=== PATIENT | male | born 1975 | race Caucasian/White ===

== ENCOUNTER 2016-11-11 10:50 | Inpatient (IN) | payer OTHER ==
[2016-11-11 11:12] VITALS: BMI 22.8
--- NOTE | 2016-11-11 12:44 | HP ---
COWS - Scale Resting Pulse: 0= [place] 80 or Below Sweatin= Chills/Flushing Restless Observation: 3= Extraneous Movement Pupil Size: 1= Pupils >than Normal Bone or Joint Aches: 4=Acute Joint/Muscle Pain Runny Nose/ Eye Tearin= Nasal Congestion GI Upset > 30mins: 3= Vomiting/Diarrhea Tremor Observation: 2= Slight Tremor Visible Yawning Observation: 1= 1-2x During Session Anxiety or Irritability: 2=Irritable/Anxious Goose Flesh Skin: 0=Smooth Skin COWS Score: 18 Admission ROS S - HPI Chief Complaint: DETOX TX FOR HEROIN DEPENDENCE Allergies/Adverse Reactions: Allergies Allergy/AdvReac Type Severity Reaction Status Date / Time No Known Allergies Allergy Verified 11/11/16 12:02 History of Present Illness: 41 Y/O H/M WITH A HX OF HEROIN AND COCAINE DEPENDENCE SEEKING DETOX TX. FIRST TIME HERE. Exam Limitations: No Limitations - Ebola screening Have you traveled outside of the country in the last 21 days: No Have you had contact with anyone from an Ebola affected area: No Have you been sick,other than usual withdrawal symptoms: No Do you have a fever: No - Review of Systems Constitutional: Chills, Night Sweats, Changes in sleep, Unintentional Wgt. Loss EENT: reports: Tearing, Nose Congestion, Dental Problems (MISSING TEETH) Respiratory: reports: No Symptoms reported Cardiac: reports: Lightheadedness GI: reports: Constipated, Diarrhea, Nausea, Poor Fluid Intake, Vomiting : reports: No Symptoms Reported Musculoskeletal: reports: Back Pain, Joint Pain, Muscle Pain Integumentary: reports: Bruising (IVD TRACKS) Neuro: reports: Headache, Dizziness Endocrine: reports: No Symptoms Reported Hematology: reports: No Symptoms Reported Psychiatric: reports: Orientated x3, Anxious Other Systems: Reviewed and Negative Patient History - Patient Medical History Hx Anemia: No Hx Asthma: No Hx Chronic Obstructive Pulmonary Disease (COPD): No Hx Cardiac Disorders: No Hx Hypertension: No Hx Hypercholesterolemia: No HX Cerebrovascular Accident: No Hx Seizures: No Hx Diabetes: No Hx Gastrointestinal Disorders: No Hx Genitourinary Disorders: No Hx Sexually Transmitted Disorders: No Hx Renal Disease (ESRD): No Hx Thyroid Disease: No Hx Human Immunodeficiency Virus (HIV): No (NEGATIVE HX) Hx Hepatitis C: Yes (TX LONG TIME AGO.) Hx Depression: Yes (NO CURRENT MED) Hx Suicide Attempt: No (DENIES) Hx Bipolar Disorder: No Hx Schizophrenia: No - Patient Surgical History Past Surgical History: Yes Hx Neurologic Surgery: No Hx Cataract Extraction: No Hx Cardiac Surgery: No Hx Lung Surgery: No Hx Breast Surgery: No Hx Breast Biopsy: No Hx Abdominal Surgery: No Hx Appendectomy: No Hx Cholecystectomy: No Hx Genitourinary Surgery: No Hx Orthopedic Surgery: No Other Surgical History: R inguinal hernia repair 7 months ago. Anesthesia Reaction: No - PPD History Previous Implant?: Yes Documented Results: Negative w/proof Implanted On Prior [facility] Admission?: No PPD to be Administered?: Yes - Reproductive History Patient is a Female of Child Bearing Age (11 -55 yrs old): No (MALE) - Smoking Cessation Smoking history: Current every day smoker Have you smoked in the past 12 months: Yes Aproximately how many cigarettes per day: 10 Hx Chewing Tobacco Use: No Initiated information on smoking cessation: Yes 'Breaking Loose' booklet given: 11/11/16 - Substance & Tx. History Hx Alcohol Use: No (DENIES) Hx Substance Use: Yes (HEROIN/COCAINE) Substance Use Type: Cocaine, Heroin Hx Substance Use Treatment: Yes ([facility] [place]) - Substances Abused Heroin Route: Injection Frequency: Daily Amount used: 20-40 bags Age of first use: 13 Date of Last Use: 11/10/16 Cocaine Route: Injection Frequency: Daily Amount used: $20 Age of first use: 20 Date of Last Use: 11/10/16 Family Disease History - Family Disease History Family Disease History: Heart Disease: Grandparent (GM-ALIVE;[id number]. ), Respiratory: Mother (ASTHMA;ANXIETY/BIPOLAR DISORDER) Admission Physical Exam S - Vital Signs Vital Signs: Vital Signs - 24 hr 11/11/16 11:10 Temperature 97.7 F Pulse Rate 74 Respiratory 18 Rate Blood Pressure 127/74 - Physical General Appearance: Yes: Moderate Distress, Irritable, Anxious HEENTM: Yes: EOMI, Normocephalic, RODRIGO, Pharynx Normal Respiratory: Yes: Chest Non-Tender, Lungs Clear, Normal Breath Sounds, No Respiratory Distress Neck: Yes: Supple, Trachea in good position Breast: Yes: Breast Exam Deferred Cardiology: Yes: Regular Rhythm, Regular Rate, S1, S2 Abdominal: Yes: Normal Bowel Sounds, Non Tender, Flat, Soft Genitourinary: Yes: Other (N/C) Back: Yes: Within Normal Limits Musculoskeletal: Yes: full range of Motion, Gait Steady Extremities: Yes: Normal Range of Motion, Non-Tender Neurological: Yes: black belt II-XII NML intact, Fully Oriented, Alert Integumentary: Yes: Dry, Warm, Track Dietz (BOTH FOREARMS-NO REDNESS OR SWELLING.) Lymphatic: Yes: Within Normal Limits - Diagnostic (1) Opioid dependence with withdrawal Current Visit: Yes Status: Acute (2) Cocaine dependence, uncomplicated Current Visit: Yes Status: Acute (3) History of depression Current Visit: Yes Status: Chronic (4) History of hepatitis C Current Visit: Yes Status: Chronic Cleared for Admission [facility] - Detox or Rehab [facility] Level of Care: Medically Managed Detox Regimen/Protocol: Methadone [facility] Breath Alcohol Content Breath Alcohol Content: 0 Urine Drug Screen - Results Drug Screen Negative: No Urine Drug Screen Results: PAVEL-Cocaine, OPI-Opiates, MTD-Methadone, OXY- Oxycodone
[2016-11-11] MEDS ORDERED: NICOTINE POLACRILEX 2 MG GUM BUC PRN (12:55)
[2016-11-11] MEDS ORDERED: LOPERAMIDE HCL 2 MG CAPSULE PO PRN (12:55)
[2016-11-11] MEDS ORDERED: ACETAMINOPHEN 325 MG TABLET (FP) PO PRN (12:55)
[2016-11-11] MEDS ORDERED: MENTHOL/PHENOL 1 EACH UD MM PRN (12:55)
[2016-11-11] MEDS ORDERED: guaiFENesin/D-METHORPHAN HB 10 ML UNIT-DOSE CUPS PO PRN (12:55)
[2016-11-11] MEDS ORDERED: IBUPROFEN 400 MG TABLET (FP) PO PRN (12:55)
[2016-11-11] MEDS ORDERED: MAGNESIUM HYDROX 2400MG/30ML ORAL SUSPENSION 30 ML CUP PO PRN (12:55)
[2016-11-11] MEDS ORDERED: MAG HYDROX/AL HYDROX/SIMETH 30 ML UNIT-DOSE CUP PO PRN (12:55)
[2016-11-11] MEDS ORDERED: P-EPHED 60MG/TRIPROLIDI 2.5MG TABLET PO PRN (12:55)
[2016-11-11] MEDS ORDERED: MAGNESIUM CITRATE 300 ML BOTTLE PO PRN (12:55)
[2016-11-11] MEDS ORDERED: METHADONE HCL 10 MG TABLET (FOR DETOX USE ONLY) PO ONE ×2 (13:25→23:00)
[2016-11-11] MEDS: diazePAM 5 MG TABLET PO PRN ×3 (13:43→22:27)
[2016-11-11] MEDS: NICOTINE 14 MG/24 HOURS TOPICAL PATCH TD SCH (13:43)
[2016-11-11 15:24] LABS: HIV 1 & 2 AB NEGATIVE; HIV 1 AGp24 NEGATIVE
[2016-11-11 16:29] LABS: URINE APPEARANCE CLEAR; URINE BILIRUBIN NEGATIVE (NEGATIVE); URINE BLOOD NEGATIVE (NEGATIVE); URINE COLOR YELLOW; URINE GLUCOSE (UA) NEGATIVE (NEGATIVE); URINE KETONE NEGATIVE (NEGATIVE); URINE LEUK ESTERASE NEGATIVE (NEGATIVE); URINE NITRITE NEGATIVE (NEGATIVE); URINE PROTEIN NEGATIVE (NEGATIVE); URINE UROBILINOGEN NEGATIVE E.U./dl (0.2-1.0)
--- NOTE | 2016-11-11 17:37 | EKG ---
Test Reason : Blood Pressure : / mmHG Vent. Rate : 068 BPM Atrial Rate : 068 BPM P-R Int : 184 ms QRS Dur : 104 ms QT Int : 406 ms P-R-T Axes : 069 014 040 degrees QTc Int : 431 ms NORMAL SINUS RHYTHM POSSIBLE LEFT ATRIAL ENLARGEMENT BORDERLINE ECG NO PREVIOUS ECGS AVAILABLE Confirmed by SHALONDA PETERSON, RODY ([id number]) on 11/11/2016 5:37:02 PM Referred By: Bo Todd Confirmed By:RODY LIZ MD
[2016-11-11] MEDS: THIAMINE HCL 100 MG TABLET (FP) PO SCH (22:26)
[2016-11-12] MEDS: diazePAM 5 MG TABLET PO PRN ×2 (06:01→10:20)
[2016-11-12 09:23] LABS: MCH 23.4 pg (25.7-33.7); MCHC 31.8 g/dl (32.0-35.9); MEAN CELL VOLUME 73.8 fl (80-96); MEAN PLT VOLUME 9.4 fl (7.5-11.1); PLATELET COUNT 180 K/MM3 (134-434); RDW 16.7 % (11.9-15.9); WHITE BLOOD COUNT 6.8 K/mm3 (4.0-10.0)
[2016-11-12 09:30] LABS: ALBUMIN 3.7 g/dl (3.4-5.0); ALK PHOS 55 U/L (45-117); ANION GAP 10 (8-16); BILIRUBIN,TOTAL 0.4 mg/dL (0.2-1.0); CALCIUM 8.8 mg/dL (8.5-10.1); CO2 30 mmol/L (21-32); CREATININE 1.1 mg/dL (0.7-1.3); GLUCOSE,RANDOM 127 mg/dL (74-106); SGOT/AST 58 U/L (15-37); SGPT/ALT 78 U/L (12-78); TOT PROT 7.2 g/dl (6.4-8.2)
--- NOTE | 2016-11-12 09:35 | CONSULT ---
[facility] Psychiatric Consult - Data Date of interview: 11/12/16 Admission source: [facility] Identifying data: First admission to [facility] for this 41 y/o male seeking detox treatment on for heroin and cocaine dependence.Patient is single without children,domiciled,unemployed and supported on food stamps. Substance Abuse History: - Smoking Cessation. Smoking history: Current every day smoker. Have you smoked in the past 12 months: Yes. Aproximately how many cigarettes per day: 10. Hx Chewing Tobacco Use: No. Initiated information on smoking cessation: Yes. 'Breaking Loose' booklet given: 11/11/16. - Substance & Tx. History. Hx Alcohol Use: No (DENIES). Hx Substance Use: Yes (HEROIN/ COCAINE). Substance Use Type: Cocaine, Heroin. Hx Substance Use Treatment: Yes ([facility]). - Substances Abused. Heroin. Route: Injection. Frequency: Daily. Amount used: 20-40 bags. Age of first use: 13. Date of Last Use: 11/10/16. Cocaine. Route: Injection. Frequency: Daily. Amount used: $20. Age of first use: 20. Date of Last Use: 11/10/16. Patient confirms this pattern of substance use in my interview. Medical History: Hepatitis C. Psychiatric History: Patient denies. Physical/Sexual Abuse/Trauma History: Patient denies. Additional Comment: Urine Drug Screen Results: PAVEL-Cocaine, OPI-Opiates, MTD- Methadone, OXY-Oxycodone.Noted. Mental Status Exam - Mental Status Exam Alert and Oriented to: Time, Place, Person Cognitive Function: Good Patient Appearance: Well Groomed (tear drop tattooed at each corner of each eye) Mood: Hopeful, Euthymic Affect: Appropriate, Normal Range Patient Behavior: Fatigued, Appropriate, Cooperative Speech Pattern: Clear Voice Loudness: Normal Thought Process: Goal Oriented Thought Disorder: Not Present Hallucinations: Denies Suicidal Ideation: Denies Homicidal Ideation: Denies Insight/Judgement: Poor Sleep: Poorly, Difficulty falling asleep Appetite: Good Muscle strength/Tone: Normal Gait/Station: Normal Psychiatric Findings - Problem List ([place] 1, 2,3) (1) Cocaine dependence, uncomplicated Current Visit: Yes Status: Acute (2) Opioid dependence with withdrawal Current Visit: Yes Status: Acute (3) Nicotine dependence Current Visit: Yes Status: Acute (4) Substance induced mood disorder Current Visit: Yes Status: Acute (5) History of hepatitis C Current Visit: Yes Status: Chronic (6) Insomnia Current Visit: Yes Status: Acute - Initial Treatment Plan Initial Treatment Plan: Psychoeducation provided in this session.Detoxification in progress.Zolpidem 10 mg po hs prn (only for hospital course).Risk of parasomnia is discussed with the patient.Made aware of the benefits of sleep hygiene.He agrees with this plan.Observation.
[2016-11-12] MEDS ORDERED: METHADONE HCL 10 MG TABLET (FOR DETOX USE ONLY) PO ONE (10:00)
[2016-11-12] MEDS: PRENATAL VITAMINS W/ FOLIC ACID TABLET (FP) PO SCH (10:20)
[2016-11-12] MEDS: NICOTINE 14 MG/24 HOURS TOPICAL PATCH TD SCH (10:21)
--- NOTE | 2016-11-12 10:31 | PN ---
BHS COWS - Scale Resting Pulse: 1= [place] 81-100 Sweatin=Flushed/Facial Moisture Restless Observation: 1= Difficult to Sit Still Pupil Size: 0= Normal to Room Light Bone or Joint Aches: 2= Severe Diffuse Aches Runny Nose/ Eye Tearin= Runny Nose/Eyes GI Upset > 30mins: 2= Nausea/Diarrhea Tremor Observation of Outstretched Hands: 2= Slight Tremor Visible Yawning Observation: 1= 1-2x During Session Anxiety or Irritability: 2=Irritable/Anxious Goose Flesh Skin: 0=Smooth Skin COWS Score: 15 BHS Progress Note (SOAP) Subjective: anxiety,tremors,sweating,interrupted sleep,restless. Objective: 11/12/16 10:30 Last Vital Signs Temp Pulse Resp BP Pulse Ox 96.4 F L 89 18 114/71 11/12/16 10:10 11/12/16 10:10 11/12/16 10:10 11/12/16 10:10 Laboratory Tests 11/11/16 11/11/16 11/12/16 12:00 13:00 06:05 WBC 6.8 RBC 5.40 Hgb 12.7 Hct 39.9 MCV 73.8 L MCHC 31.8 L RDW 16.7 H Plt Count 180 MPV 9.4 Sodium Potassium Chloride Carbon Dioxide Anion Gap BUN Creatinine Creat Clearance w eGFR Random Glucose Calcium Total Bilirubin AST ALT Alkaline Phosphatase Total Protein Albumin Urine Color Yellow Urine Appearance Clear Urine pH 6.0 Ur Specific [place] 1.024 Urine Protein Negative Urine Glucose (UA) Negative Urine Ketones Negative Urine Blood Negative Urine Nitrite Negative Urine Bilirubin Negative Urine Urobilinogen Negative Ur Leukocyte Esterase Negative HIV 1&2 Antibody Screen Negative HIV P24 Antigen Negative 11/12/16 06:05 WBC RBC Hgb Hct MCV MCHC RDW Plt Count MPV Sodium 140 Potassium 4.1 Chloride 100 Carbon Dioxide 30 Anion Gap 10 BUN 22 H Creatinine 1.1 Creat Clearance w eGFR > 60 Random Glucose 127 H Calcium 8.8 Total Bilirubin 0.4 AST 58 H ALT 78 Alkaline Phosphatase 55 Total Protein 7.2 Albumin 3.7 Urine Color Urine Appearance Urine pH Ur Specific [place] Urine Protein Urine Glucose (UA) Urine Ketones Urine Blood Urine Nitrite Urine Bilirubin Urine Urobilinogen Ur Leukocyte Esterase HIV 1&2 Antibody Screen HIV P24 Antigen labs noted Assessment: 11/12/16 10:30 withdrawal sx. Plan: continue detox
[2016-11-12 11:09] LABS: SICKLE CELL SCREEN NEGATIVE (NEGATIVE)
[2016-11-12] MEDS: CLOTRIMAZOLE/BETAMET DIPROP TOPICAL CREAM 45 GM TUBE TP SCH ×2 (12:45→22:27)
[2016-11-12] MEDS: THIAMINE HCL 100 MG TABLET (FP) PO SCH (22:27)
[2016-11-12] MEDS: diphenhydrAMINE HCL 50 MG CAPSULE PO PRN (22:27)
[2016-11-13] MEDS: diazePAM 5 MG TABLET PO PRN ×3 (05:24→22:49)
[2016-11-13] MEDS ORDERED: METHADONE HCL 5 MG TABLET (FOR DETOX USE ONLY) PO ONE (10:00)
[2016-11-13] MEDS: NICOTINE 14 MG/24 HOURS TOPICAL PATCH TD SCH (10:28)
[2016-11-13] MEDS: CLOTRIMAZOLE/BETAMET DIPROP TOPICAL CREAM 45 GM TUBE TP SCH ×2 (10:28→22:51)
[2016-11-13] MEDS: PRENATAL VITAMINS W/ FOLIC ACID TABLET (FP) PO SCH (10:28)
--- NOTE | 2016-11-13 11:48 | PN ---
BHS COWS - Scale Resting Pulse: 1= [place] 81-100 Sweatin= Chills/Flushing Restless Observation: 1= Difficult to Sit Still Pupil Size: 1= Pupils >than Normal Bone or Joint Aches: 1= Mild Discomfort Runny Nose/ Eye Tearin= Nasal Congestion GI Upset > 30mins: 2= Nausea/Diarrhea Tremor Observation of Outstretched Hands: 2= Slight Tremor Visible Yawning Observation: 1= 1-2x During Session Anxiety or Irritability: 1=Feels Anxious/Irritable Goose Flesh Skin: 3=Piloerection COWS Score: 15 S Progress Note (SOAP) Subjective: nausea, sweats, interrupted sleep, anxiety, tremors Objective: 11/13/16 11:47 Vital Signs - 24 hr 11/12/16 11/12/16 11/12/16 14:29 16:54 23:12 Temperature 96.7 F L 98.0 F 96.3 F L Pulse Rate 58 L 81 76 Respiratory 18 16 19 Rate Blood Pressure 128/72 121/62 112/66 11/13/16 11/13/16 03:30 06:43 Temperature 97.8 F Pulse Rate 73 Respiratory 18 18 Rate Blood Pressure 120/70 Laboratory Tests 11/11/16 11/11/16 11/12/16 12:00 13:00 06:05 WBC 6.8 RBC 5.40 Hgb 12.7 Hct 39.9 MCV 73.8 L MCHC 31.8 L RDW 16.7 H Plt Count 180 MPV 9.4 Sickle Cell Screen Negative Sodium Potassium Chloride Carbon Dioxide Anion Gap BUN Creatinine Creat Clearance w eGFR Random Glucose Calcium Total Bilirubin AST ALT Alkaline Phosphatase Total Protein Albumin Urine Color Yellow Urine Appearance Clear Urine pH 6.0 Ur Specific [place] 1.024 Urine Protein Negative Urine Glucose (UA) Negative Urine Ketones Negative Urine Blood Negative Urine Nitrite Negative Urine Bilirubin Negative Urine Urobilinogen Negative Ur Leukocyte Esterase Negative RPR Titer HIV 1&2 Antibody Screen Negative HIV P24 Antigen Negative 11/12/16 11/12/16 06:05 06:05 WBC RBC Hgb Hct MCV MCHC RDW Plt Count MPV Sickle Cell Screen Sodium 140 Potassium 4.1 Chloride 100 Carbon Dioxide 30 Anion Gap 10 BUN 22 H Creatinine 1.1 Creat Clearance w eGFR > 60 Random Glucose 127 H Calcium 8.8 Total Bilirubin 0.4 AST 58 H ALT 78 Alkaline Phosphatase 55 Total Protein 7.2 Albumin 3.7 Urine Color Urine Appearance Urine pH Ur Specific [place] Urine Protein Urine Glucose (UA) Urine Ketones Urine Blood Urine Nitrite Urine Bilirubin Urine Urobilinogen Ur Leukocyte Esterase RPR Titer Nonreactive HIV 1&2 Antibody Screen HIV P24 Antigen elevated bun/creatinine, mcirocytosis Assessment: 11/13/16 11:48 withdrawal sx, dehydration Plan: cont detox, fluids, encoruage ambualtion, iron supplements
[2016-11-13] MEDS: FERROUS GLUCONATE 324 MG TAB (FP) PO SCH ×2 (13:53→20:03)
[2016-11-13] MEDS: THIAMINE HCL 100 MG TABLET (FP) PO SCH (22:48)
[2016-11-13] MEDS: diphenhydrAMINE HCL 50 MG CAPSULE PO PRN (22:49)
[2016-11-14] MEDS: diazePAM 5 MG TABLET PO PRN (05:12)
[2016-11-14] MEDS: FERROUS GLUCONATE 324 MG TAB (FP) PO SCH ×3 (08:34→17:47)
[2016-11-14] MEDS ORDERED: METHADONE HCL 5 MG TABLET (FOR DETOX USE ONLY) PO ONE (10:00)
[2016-11-14] MEDS: CLOTRIMAZOLE/BETAMET DIPROP TOPICAL CREAM 45 GM TUBE TP SCH ×2 (10:40→22:44)
[2016-11-14] MEDS: PRENATAL VITAMINS W/ FOLIC ACID TABLET (FP) PO SCH (10:45)
[2016-11-14] MEDS: NICOTINE 14 MG/24 HOURS TOPICAL PATCH TD SCH (10:45)
--- NOTE | 2016-11-14 15:53 | PN ---
BHS Progress Note (SOAP) Subjective: Nausea, anxious, sweating, interrupted sleep Objective: 11/14/16 15:51 Last Vital Signs Temp Pulse Resp BP Pulse Ox 99.9 F H 85 18 125/78 11/14/16 14:20 11/14/16 14:20 11/14/16 14:20 11/14/16 14:20 Laboratory Tests 11/11/16 11/11/16 11/12/16 12:00 13:00 06:05 WBC 6.8 RBC 5.40 Hgb 12.7 Hct 39.9 MCV 73.8 L MCHC 31.8 L RDW 16.7 H Plt Count 180 MPV 9.4 Sickle Cell Screen Negative Sodium Potassium Chloride Carbon Dioxide Anion Gap BUN Creatinine Creat Clearance w eGFR Random Glucose Calcium Total Bilirubin AST ALT Alkaline Phosphatase Total Protein Albumin Urine Color Yellow Urine Appearance Clear Urine pH 6.0 Ur Specific [place] 1.024 Urine Protein Negative Urine Glucose (UA) Negative Urine Ketones Negative Urine Blood Negative Urine Nitrite Negative Urine Bilirubin Negative Urine Urobilinogen Negative Ur Leukocyte Esterase Negative RPR Titer HIV 1&2 Antibody Screen Negative HIV P24 Antigen Negative 11/12/16 11/12/16 06:05 06:05 WBC RBC Hgb Hct MCV MCHC RDW Plt Count MPV Sickle Cell Screen Sodium 140 Potassium 4.1 Chloride 100 Carbon Dioxide 30 Anion Gap 10 BUN 22 H Creatinine 1.1 Creat Clearance w eGFR > 60 Random Glucose 127 H Calcium 8.8 Total Bilirubin 0.4 AST 58 H ALT 78 Alkaline Phosphatase 55 Total Protein 7.2 Albumin 3.7 Urine Color Urine Appearance Urine pH Ur Specific [place] Urine Protein Urine Glucose (UA) Urine Ketones Urine Blood Urine Nitrite Urine Bilirubin Urine Urobilinogen Ur Leukocyte Esterase RPR Titer Nonreactive HIV 1&2 Antibody Screen HIV P24 Antigen Labs noted Assessment: 11/14/16 15:52 Withdrawal symptoms Plan: Continue detox
[2016-11-14] MEDS: hydrOXYzine PAMOATE 50 MG CAPSULE (FP) PO PRN (17:49)
[2016-11-14] MEDS: diphenhydrAMINE HCL 50 MG CAPSULE PO PRN (22:44)
[2016-11-14] MEDS: THIAMINE HCL 100 MG TABLET (FP) PO SCH (22:44)
[2016-11-15] MEDS: hydrOXYzine PAMOATE 50 MG CAPSULE (FP) PO PRN (06:07)
[2016-11-15] MEDS: FERROUS GLUCONATE 324 MG TAB (FP) PO SCH ×3 (07:21→17:30)
[2016-11-15] MEDS ORDERED: METHADONE HCL 10 MG TABLET (FOR DETOX USE ONLY) PO ONE (10:00)
[2016-11-15] MEDS: NICOTINE 14 MG/24 HOURS TOPICAL PATCH TD SCH (10:45)
[2016-11-15] MEDS: PRENATAL VITAMINS W/ FOLIC ACID TABLET (FP) PO SCH (10:45)
[2016-11-15] MEDS: CLOTRIMAZOLE/BETAMET DIPROP TOPICAL CREAM 45 GM TUBE TP SCH ×2 (10:45→22:51)
--- NOTE | 2016-11-15 11:48 | PN ---
BHS Progress Note (SOAP) Subjective: ANXIETY,SWEATS,IRRITABILITY, INTERMITTENT SLEEP. Objective: 11/15/16 11:48 Vital Signs Temperature 97.1 F L 11/15/16 11:01 Pulse Rate 80 11/15/16 11:01 Respiratory Rate 18 11/15/16 11:01 Blood Pressure 119/75 11/15/16 11:01 O2 Sat by Pulse Oximetry (%) Assessment: 11/15/16 11:48 WITHDRAWAL SX Plan: CONTINUE DETOX
[2016-11-15] MEDS: diphenhydrAMINE HCL 50 MG CAPSULE PO PRN (22:42)
[2016-11-15] MEDS: THIAMINE HCL 100 MG TABLET (FP) PO SCH (22:42)
[2016-11-16] MEDS ORDERED: METHADONE HCL 5 MG TABLET (FOR DETOX USE ONLY) PO ONE (06:00)
[2016-11-16] MEDS: FERROUS GLUCONATE 324 MG TAB (FP) PO SCH ×2 (07:50→11:07)
[2016-11-16] MEDS: PRENATAL VITAMINS W/ FOLIC ACID TABLET (FP) PO SCH (10:26)
[2016-11-16] MEDS: NICOTINE 14 MG/24 HOURS TOPICAL PATCH TD SCH (10:26)
[2016-11-16] MEDS: CLOTRIMAZOLE/BETAMET DIPROP TOPICAL CREAM 45 GM TUBE TP SCH (10:26)
[2016-11-16 10:41] VITALS: BP 121/78; PULSE 97; TEMP 97.1
--- NOTE | 2016-11-16 11:53 | DS ---
[facility] Detox Discharge Summary Admission Date: 11/11/16 Discharge Date: 11/16/16 - History Present History: Cocaine Dependence, Opioid Dependence Additional Comments: DETOX COMPLETED. Pertinent Past History: HEP C DEPRESSION - Physical Exam Results Vital Signs: Vital Signs Temperature 97.1 F L 11/16/16 10:40 Pulse Rate 97 H 11/16/16 10:40 Respiratory Rate 18 11/16/16 10:40 Blood Pressure 121/78 11/16/16 10:40 O2 Sat by Pulse Oximetry (%) Pertinent Admission Physical Exam Findings: WITHDRAWAL SX Laboratory Last Values WBC 6.8 K/mm3 (4.0-10.0) 11/12/16 06:05 RBC 5.40 M/mm3 (4.00-5.60) 11/12/16 06:05 Hgb 12.7 GM/dL (11.7-16.9) 11/12/16 06:05 Hct 39.9 % (35.4-49) 11/12/16 06:05 MCV 73.8 fl (80-96) L 11/12/16 06:05 MCHC 31.8 g/dl (32.0-35.9) L 11/12/16 06:05 RDW 16.7 % (11.9-15.9) H 11/12/16 06:05 Plt Count 180 K/MM3 (134-434) 11/12/16 06:05 MPV 9.4 fl (7.5-11.1) 11/12/16 06:05 Sickle Cell Screen Negative (NEGATIVE) 11/12/16 06:05 Sodium 140 mmol/L (136-145) 11/12/16 06:05 Potassium 4.1 mmol/L (3.5-5.1) 11/12/16 06:05 Chloride 100 mmol/L (98-107) 11/12/16 06:05 Carbon Dioxide 30 mmol/L (21-32) 11/12/16 06:05 Anion Gap 10 (8-16) 11/12/16 06:05 BUN 22 mg/dL (7-18) H 11/12/16 06:05 Creatinine 1.1 mg/dL (0.7-1.3) 11/12/16 06:05 Creat Clearance w eGFR > 60 (>60) 11/12/16 06:05 Random Glucose 127 mg/dL (74-106) H 11/12/16 06:05 Calcium 8.8 mg/dL (8.5-10.1) 11/12/16 06:05 Total Bilirubin 0.4 mg/dL (0.2-1.0) 11/12/16 06:05 AST 58 U/L (15-37) H 11/12/16 06:05 ALT 78 U/L (12-78) 11/12/16 06:05 Alkaline Phosphatase 55 U/L (45-117) 11/12/16 06:05 Total Protein 7.2 g/dl (6.4-8.2) 11/12/16 06:05 Albumin 3.7 g/dl (3.4-5.0) 11/12/16 06:05 Urine Color Yellow 11/11/16 13:00 Urine Appearance Clear 11/11/16 13:00 Urine pH 6.0 (5.0-8.0) 11/11/16 13:00 Ur Specific [place] 1.024 (1.001-1.035) 11/11/16 13:00 Urine Protein Negative (NEGATIVE) 11/11/16 13:00 Urine Glucose (UA) Negative (NEGATIVE) 11/11/16 13:00 Urine Ketones Negative (NEGATIVE) 11/11/16 13:00 Urine Blood Negative (NEGATIVE) 11/11/16 13:00 Urine Nitrite Negative (NEGATIVE) 11/11/16 13:00 Urine Bilirubin Negative (NEGATIVE) 11/11/16 13:00 Urine Urobilinogen Negative E.U./dl (0.2-1.0) 11/11/16 13:00 Ur Leukocyte Esterase Negative (NEGATIVE) 11/11/16 13:00 RPR Titer Nonreactive (NONREACTIVE) 11/12/16 06:05 HIV 1&2 Antibody Screen Negative 11/11/16 12:00 HIV P24 Antigen Negative 11/11/16 12:00 - Treatment Hospital Course: Detox Protocol Followed, Detoxed Safely, Responded well, Discharged Condition Good - Medication Discharge Medications: Ambulatory Orders NK [No Known Home Medication] 11/11/16 - Diagnosis (1) Opioid dependence with withdrawal Status: Acute (2) Cocaine dependence, uncomplicated Status: Acute (3) History of depression Status: Chronic (4) History of hepatitis C Status: Chronic (5) Nicotine dependence Status: Chronic Qualifiers: Nicotine product type: cigarettes Substance use status: uncomplicated Qualified Code(s): F17.210 - Nicotine dependence, cigarettes, uncomplicated (6) Substance induced mood disorder Status: Acute - AMA Did Patient Leave Against Medical Advice: No
== END 2016-11-16 11:10 | disposition home or self-care (01) | DRG 773 ==
LOC: YASAS 10:50 → Y3N 12:26
PROVIDERS: ADMIT Internal Medicine; ATTEND Internal Medicine
PROC: HZ2ZZZZ Detoxification Services for Substance Abuse Treatment (ICD-10-PCS; principal; 2016-11-16)
DX: F11.23 Opioid dependence with withdrawal (principal); F14.20 Cocaine dependence, uncomplicated; F17.210 Nicotine dependence, cigarettes, uncomplicated; F19.24 Other psychoactive substance dependence with psychoactive substance-induced mood disorder; F32.9 Major depressive disorder, single episode, unspecified; B18.2 Chronic viral hepatitis C; G47.00 Insomnia, unspecified; Z59.0 Homelessness
CPT/HCPCS: 36415; 80053; 81003; 85027; 85660; 86593; 87389; 93005; 93010

== ENCOUNTER 2024-01-23 12:55 | Inpatient (IN) | payer OTHER ==
[2024-01-23 14:29] VITALS: BMI 26.6
[2024-01-23] MEDS ORDERED: NALOXONE HCL (KLOXXADO) 8 MG SPRAY NS PRN (15:00)
[2024-01-23] MEDS ORDERED: ACETAMINOPHEN 325 MG TABLET (FP) PO PRN (15:00)
[2024-01-23] MEDS ORDERED: BENZONATATE 200 MG CAPSULE PO PRN (15:00)
[2024-01-23] MEDS ORDERED: NALOXONE HCL 0.4 MG/ML VIAL IM PRN (15:00)
[2024-01-23] MEDS ORDERED: IBUPROFEN 600 MG TABLET (FP) PO PRN (15:00)
[2024-01-23] MEDS ORDERED: guaiFENesin 600 MG TABLET.ER (FP) PO PRN (15:00)
[2024-01-23] MEDS ORDERED: BISMUTH SUBSALICYLATE 262 MG/15 ML BTL PO PRN (15:00)
[2024-01-23] MEDS ORDERED: MAGNESIUM HYDROX 2400MG/30ML ORAL SUSPENSION 30 ML CUP PO PRN (15:00)
[2024-01-23] MEDS ORDERED: MAG HYDROX/AL HYDROX/SIMETH 30 ML UNIT-DOSE CUP PO PRN (15:00)
[2024-01-23] MEDS ORDERED: IBUPROFEN 400 MG TABLET (FP) PO PRN (15:00)
[2024-01-23] MEDS ORDERED: LOPERAMIDE HCL 2 MG CAPSULE PO PRN (15:00)
[2024-01-23] MEDS ORDERED: DICYCLOMINE HCL 10 MG CAPSULE PO PRN (15:00)
[2024-01-23] MEDS ORDERED: POLYETHYLENE GLYCOL (HEALTHYLAX) 3350 17 GM PACKET PO PRN (15:00)
[2024-01-23] MEDS ORDERED: BENZOCAINE/MENTHOL (CHLORASEPTIC ) LOZENGE MM PRN (15:00)
[2024-01-23] MEDS ORDERED: ONDANSETRON *ODT* 4 MG TABLET SL PRN (15:00)
[2024-01-23] MEDS ORDERED: NICOTINE 7 MG/24 HOURS TOPICAL PATCH TD ONE (16:59)
[2024-01-23] MEDS: NICOTINE 7 MG/24 HOURS TOPICAL PATCH TD SCH (17:02)
[2024-01-23] MEDS: MELATONIN 5 MG TABLETS PO SCH (22:35)
[2024-01-23] MEDS: THIAMINE HCL 100 MG TABLET (FP) PO SCH (22:35)
[2024-01-24] MEDS ORDERED: methaDONE HCL 10 MG TABLET PO ONE (06:00)
[2024-01-24] MEDS: methaDONE 80 MG, methaDONE 10 MG PO ONE (07:19)
[2024-01-24] MEDS: PRENATAL VITAMINS W/ FOLIC ACID TABLET (FP) PO SCH (09:36)
[2024-01-24] MEDS: METHOCARBAMOL 500 MG TABLET PO PRN (09:38)
[2024-01-24 14:44] LABS: HEMATOCRIT 37.4 % (35.4-49); HEMOGLOBIN 12.2 GM/dL (11.7-16.9); MCH 23.1 pg (25.7-33.7); MCHC 32.7 g/dl (32.0-35.9); MEAN CELL VOLUME 70.6 fl (80-96); MEAN PLT VOLUME 9.5 fl (7.5-11.1); PLATELET COUNT 166 10^3/uL (134-434); RDW 16.1 % (11.9-15.9); WHITE BLOOD COUNT 4.5 K/mm3 (4.0-10.0)
[2024-01-24 15:15] LABS: POTASSIUM 4.3 mmol/L (3.5-5.1)
[2024-01-24 15:16] LABS: ALBUMIN 3.3 g/dl (3.4-5.0); BLOOD UREA NITROGEN 14.7 mg/dL (7-18)
[2024-01-24 15:19] LABS: CREATININE 0.7 mg/dL (0.55-1.3)
[2024-01-24 15:20] LABS: BILIRUBIN,TOTAL 0.3 mg/dL (0.2-1); TOT PROT 6.7 g/dl (6.4-8.2)
[2024-01-25] MEDS: methaDONE 80 MG, methaDONE 20 MG PO ONE (05:37)
[2024-01-25] MEDS ORDERED: methaDONE HCL 10 MG TABLET PO ONE (06:00)
[2024-01-25] MEDS: traZODone HCL 100 MG TABLET (FP) PO SCH (22:51)
[2024-01-26] MEDS ORDERED: methaDONE HCL 10 MG TABLET PO SCH (06:00)
[2024-01-27] MEDS: methaDONE HCL 40 MG DISPERSABLE TABLET PO ONE (05:44)
[2024-01-27] MEDS ORDERED: methaDONE HCL 10 MG TABLET PO ONE (06:00)
[2024-01-28] MEDS ORDERED: methaDONE HCL 10 MG TABLET PO ONE (06:00)
[2024-01-30] MEDS: hydrOXYzine PAMOATE 25 MG CAPSULE (FP) PO PRN (06:29)
[2024-01-30 06:38] VITALS: RESP 16
[2024-01-30 09:11] VITALS: BP 137/90; PULSE 64; TEMP 98.4
[2024-01-30] MEDS ORDERED: methaDONE HCL 10 MG TABLET PO SCH (09:45)
== END 2024-01-30 10:12 | disposition home or self-care (01) | DRG 773 ==
LOC: YASAS 12:55 → Y3N 17:31
PROVIDERS: ADMIT Allergy & Immunology; ATTEND Surgery
PROC: HZ2ZZZZ Detoxification Services for Substance Abuse Treatment (ICD-10-PCS; principal; 2024-01-23)
DX: F11.23 Opioid dependence with withdrawal (principal); F14.20 Cocaine dependence, uncomplicated; F17.210 Nicotine dependence, cigarettes, uncomplicated; F19.24 Other psychoactive substance dependence with psychoactive substance-induced mood disorder; F31.9 Bipolar disorder, unspecified; G47.00 Insomnia, unspecified; M51.26 Other intervertebral disc displacement, lumbar region; M47.816 Spondylosis without myelopathy or radiculopathy, lumbar region; G89.29 Other chronic pain; Z28.310 Unvaccinated for COVID-19; Z28.9 Immunization not carried out for unspecified reason; Z86.19 Personal history of other infectious and parasitic diseases; Z86.59 Personal history of other mental and behavioral disorders; Z59.00 Homelessness unspecified
CPT/HCPCS: 36415; 80053; 85027; 86780; 93005; 93010